=== PATIENT | male | born 1980 | race African-American/Black ===

== ENCOUNTER 2016-10-03 12:38 | Emergency (ER) | payer OTHER, BC ==
[2016-10-03 12:52] VITALS: BP 145/90; PULSE 81; TEMP 98.3; BMI 34.9
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
== END 2016-10-03 15:03 | disposition home or self-care (01) ==
LOC: JERFT 12:38
DX: S46.912A Strain of unspecified muscle, fascia and tendon at shoulder and upper arm level, left arm, initial encounter (principal); V43.52XA Car driver injured in collision with other type car in traffic accident, initial encounter; Y93.89 Activity, other specified; Y92.410 Unspecified street and highway as the place of occurrence of the external cause; F17.210 Nicotine dependence, cigarettes, uncomplicated
CPT/HCPCS: 72125-TC; 73000-TC-LT; 99281-25

== ENCOUNTER 2018-07-25 18:51 | Emergency (ER) | payer BC, OTHER ==
--- NOTE | 2018-07-25 18:53 | PDOC ---
Rapid Medical Evaluation Time Seen by Provider: 07/25/18 18:53 Medical Evaluation: Allergies Allergy/AdvReac Type Severity Reaction Status Date / Time No Known Allergies Allergy Verified 10/03/16 12:46 07/25/18 18:53 I have performed a brief in-person evaluation of this patient. The patient presents with a chief complaint of: Chest pressure, nausea, lethargy. 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 No history of DM. Pertinent physical exam findings: Alert, oriented, no distress. I have ordered the following: EKG, labs. The patient will proceed to the ED for further evaluation. 07/25/18 18:54 Discharge Disposition - Diagnosis Chest pain Qualifiers: Chest pain type: unspecified Qualified Code(s): R07.9 - Chest pain, unspecified - Referrals - Patient Instructions - Post Discharge Activity
[2018-07-25 18:56] VITALS: BMI 41.9
--- NOTE | 2018-07-25 19:25 | PDOC ---
History of Present Illness - General Chief Complaint: Blood Sugar Problem Stated Complaint: EVALUATION Time Seen by Provider: 07/25/18 18:53 - History of Present Illness Initial Comments: 07/25/18 19:24 38 yo M with h/o HTN, who p/w fatigue, nausea. Patient reports 2 days of decreased appetite, nausea without vomiting, and increased fatigue. States that he took his home blood sugar was 379 at 6000 PM and denies h/o DM. Endorses slight chest discomfort/pressure, and palpitations, with no identifiable triggers or alleviators. + chronic cough with absent sputum production. + right sided leg cramping. Patient denies COULTER, vision change, hearing loss, F,C, CP, SOB, urinary complaints , abdominal pain, diarrhea, constipation, hematruia, BPR, lightheadedness, weakness, sensory changes. PMHx: as noted above. Denies h/o ACS/RI, stent placement, CABG, stress testing. ROS: as noted SHx: tobacco use 5+ years. Denies IVDA Allergies: NKDA Past History - Past Medical History Allergies/Adverse Reactions: Allergies Allergy/AdvReac Type Severity Reaction Status Date / Time No Known Allergies Allergy Verified 10/03/16 12:46 Home Medications: Ambulatory Orders Amlodipine Besylate [Norvasc -] 10 mg PO DAILY 07/10/16 Cyclobenzaprine HCl [Flexeril -] 10 mg PO TID #12 tablet 07/10/16 Hydrochlorothiazide [Hctz -] 12.5 mg PO DAILY 07/10/16 Lisinopril 10 mg PO DAILY 07/10/16 COPD: No Diabetes: No HTN: Yes - Surgical History Cardiac Surgery: No - Immunization History Immunization Up to Date: No - Suicide/Smoking/Psychosocial Hx Smoking Status: No Smoking History: Former smoker Have you smoked in the past 12 months: No Number of Cigarettes Smoked Daily: 3 Information on smoking cessation initiated: No 'Breaking Loose' booklet given: 10/03/16 Hx Alcohol Use: No Drug/Substance Use Hx: No Substance Use Type: None Review of Systems - Review of Systems Comments:: 07/25/18 19:24 GENERAL/CONSTITUTIONAL: + Weakness. No fever or chills. HEAD, EYES, EARS, NOSE AND THROAT: No change in vision. No ear pain or discharge. No sore throat. CARDIOVASCULAR: + chest pain. No shortness of breath RESPIRATORY: No cough, wheezing, or hemoptysis. GASTROINTESTINAL: No nausea, vomiting, diarrhea or constipation. GENITOURINARY: No dysuria, frequency, or change in urination. MUSCULOSKELETAL: No joint or muscle swelling or pain. No neck or back pain. SKIN: No rash NEUROLOGIC: + leg cramping. No headache, vertigo, loss of consciousness, or change in strength/sensation. ENDOCRINE: No increased thirst. No abnormal weight change HEMATOLOGIC/LYMPHATIC: No anemia, easy bleeding, or history of blood clots. ALLERGIC/IMMUNOLOGIC: No hives or skin allergy. *Physical Exam - Vital Signs Last Vital Signs Temp Pulse Resp BP Pulse Ox 98.4 F 104 H 18 165/94 100 07/25/18 18:52 07/25/18 18:52 07/25/18 18:52 07/25/18 18:52 07/25/18 18:52 - Physical Exam Comments: 07/25/18 19:25 GENERAL: Awake, alert, and fully oriented, in no acute distress HEAD: No signs of trauma, normocephalic, atraumatic EYES: PERRLA, EOMI, sclera anicteric, conjunctiva clear ENT: + Dry mucous membranes. Auricles normal inspection, hearing grossly normal , nares patent, oropharynx clear without exudates. NECK: Normal ROM, supple, no lymphadenopathy, JVD, or masses LUNGS: No distress, speaks full sentences, clear to auscultation bilaterally HEART: Irregular rhythm, normal rate, S1 and S2, no murmurs, rubs or gallops, peripheral pulses normal and equal bilaterally. ABDOMEN: Soft, nontender, normoactive bowel sounds. No guarding, no rebound. No masses EXTREMITIES : Normal inspection, Normal range of motion, no edema. No clubbing or cyanosis. NEUROLOGICAL: Cranial nerves II through XII grossly intact. Normal speech, normal gait, no focal sensorimotor deficits SKIN: Warm, Dry, normal turgor, no rashes or lesions noted Moderate Sedation - Procedure Monitoring Vital Signs: Procedure Monitoring Vital Signs Temperature 98.4 F 07/25/18 18:52 Pulse Rate 104 H 07/25/18 18:52 Respiratory Rate 18 07/25/18 18:52 Blood Pressure 165/94 07/25/18 18:52 O2 Sat by Pulse Oximetry (%) 100 07/25/18 18:52 ED Treatment Course - LABORATORY CBC & Chemistry Diagram: 07/25/18 19:19 07/25/18 19:19 Medical Decision Making - Medical Decision Making 07/25/18 19:47 38 yo M with h/o HTN, who p/w fatigue, nausea. HR 104, vitals otherwise wnl, AF , A&Ox3. ACS/RI r/o. Will assess for hypo/hyperglycemia, electrolyte abnml, metabolic and toxic derangements, acid-base disturbances, infection. Will provide IVF, anti-emetic and reassess. ED Course: NS, Zofran 07/25/18 20:30 CBC,CMP: Unremarkable Trop: 0.07 Glu: 123, c02 27, pH 7.42 flu: neg 07/25/18 21:36 EKG: NSR with PACs, absent DORON, STD. + LVH. normal interval duration. Patient advised to f/u with PMD Patient stable and ready for d/c with return precautions. *DC/Admit/Observation/Transfer Diagnosis at time of Disposition: Chest pain Qualifiers: Chest pain type: unspecified Qualified Code(s): R07.9 - Chest pain, unspecified - Discharge Dispostion Condition at time of disposition: Stable - Referrals Referrals: Juan Jose Leal MD [Staff Physician] - - Patient Instructions Printed Discharge Instructions: DI for Hyperglycemia -- Adult, DI for Fatigue Additional Instructions: Please return to the emergency department with any new or worsening symptoms or concerns. Please follow up with your primary care physician within 72 hours. - Post Discharge Activity - Attestations Physician Attestion: 07/25/18 19:25 I attest to the information provided in this note.
[2018-07-25 19:38] LABS: BASO % 0.5 % (0-2.0); EOS % 0.9 % (0-4.5); HEMATOCRIT 44.3 % (35.4-49); HEMOGLOBIN 15.3 GM/dL (11.7-16.9); LYMPH % 16.8 % (8-40); MCH 30.3 pg (25.7-33.7); MCHC 34.5 g/dl (32.0-35.9); MEAN CELL VOLUME 87.9 fl (80-96); MEAN PLT VOLUME 8.3 fl (7.5-11.1); MONO % 3.9 % (3.8-10.2); NEUT % 77.9 % (42.8-82.8); PLATELET COUNT 299 K/MM3 (134-434); RBC 5.04 M/mm3 (4.00-5.60); RDW 13.4 % (11.9-15.9); VENOUS PC02 43.2 mmHg (38-52); VENOUS PH 7.42 (7.32-7.42); VENOUS PO2 31.7 mmHg (28-48); WHITE BLOOD COUNT 9.2 K/mm3 (4.0-10.0)
[2018-07-25] MEDS ORDERED: SODIUM CHLORIDE 0.9% 500 ML INFUS.BAG IV ONE (19:41)
[2018-07-25] MEDS ORDERED: ONDANSETRON 4 MG/2 ML VIAL IVPB ONE (19:41)
[2018-07-25] MEDS ORDERED: ONDANSETRON 4 MG/2 ML VIAL ONE (19:54)
[2018-07-25 20:02] LABS: ALBUMIN 4.5 g/dl (3.4-5.0); ALK PHOS 93 U/L (45-117); ANION GAP 10 MMOL/L (8-16); BILIRUBIN,TOTAL 0.9 mg/dL (0.2-1); BLOOD UREA NITROGEN 20 mg/dL (7-18); CALCIUM 8.8 mg/dL (8.5-10.1); CHLORIDE 103 mmol/L (98-107); CO2 27 mmol/L (21-32); GLUCOSE,RANDOM 123 mg/dL (74-106); SODIUM 140 mmol/L (136-145); TOT PROT 7.8 g/dl (6.4-8.2)
[2018-07-25 20:03] LABS: POTASSIUM 3.6 mmol/L (3.5-5.1); SGOT/AST 35 U/L (15-37); SGPT/ALT 35 U/L (13-61)
--- NOTE | 2018-07-25 20:31 | PDOC ---
Attending Attestation - HPI HPI: This patient is a 38 year old male with PMHx of HTN, who presents with 2 days of fatigue and nausea. 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 He also notes decreased appetite, slight chest pressure/discomfort, and palpitations. He notes chronic nonproductive cough and right sided leg cramping. He denies any headache, visual changes, hearing loss, fever, chills, chest pain , shortness of breath, urinary complaints, abdominal pain, diarrhea, constipation, hematuria, blood per rectum, lightheadedness, or sensory changes. Allergies: None Past surgical history: None reported Social history: Cigarette use (1 daily). Occasional alcohol use. No drug use reported <Natalya Feng - Last Filed: 07/25/18 20:56> - Resident Resident Name: Kashmir Menjivar - ED Attending Attestation I have performed the following: I have examined & evaluated the patient, The case was reviewed & discussed with the resident, I agree w/resident's findings & plan, Exceptions are as noted - Physicial Exam PE: 07/25/18 22:28 Agree with resident exam Patient well appearing, NAD, AOx3 - Medical Decision Making 07/25/18 22:28 Well appearing 38M with pmh of HTN here with several days of fatigue, nausea, decreased appetite found to have fsg >300 at home New DM? eval for dka, electrolyte/metabolic derangements f/u labs re-eval after symptomatic tx Pt states asymptomatic after tx Has follow up with PCP 07/30/18 <Ja Coombs - Last Filed: 07/25/18 22:31>
[2018-07-25 21:02] LABS: ACETONE SERUM NEGATIVE (NEGATIVE)
[2018-07-25 21:58] VITALS: BP 137/68; PULSE 89; TEMP 98.5
--- NOTE | 2018-07-26 11:39 | EKG ---
Test Reason : Blood Pressure : / mmHG Vent. Rate : 092 BPM Atrial Rate : 092 BPM P-R Int : 186 ms QRS Dur : 094 ms QT Int : 348 ms P-R-T Axes : 029 010 035 degrees QTc Int : 430 ms SINUS RHYTHM WITH PREMATURE ATRIAL COMPLEXES MINIMAL VOLTAGE CRITERIA FOR LVH, MAY BE NORMAL VARIANT BORDERLINE ECG WHEN COMPARED WITH ECG OF 22-NOV-2011 21:57, PREMATURE ATRIAL COMPLEXES ARE NOW PRESENT MINIMAL CRITERIA FOR SEPTAL INFARCT ARE NO LONGER PRESENT Confirmed by WILLIAM LÓPEZ, ASHLEY ([id number]) on 07/26/2018 11:38:57 AM Referred By: Confirmed By:ASHLEY THOMAS MD
== END 2018-07-25 21:56 | disposition home or self-care (01) ==
LOC: JER 18:51
PROC: 3E033GC Introduction of Other Therapeutic Substance into Peripheral Vein, Percutaneous Approach (ICD-10-PCS; principal; 2018-07-25)
DX: R07.9 Chest pain, unspecified (principal); R73.9 Hyperglycemia, unspecified; I10 Essential (primary) hypertension
CPT/HCPCS: 36415; 71045-TC-FY; 80053; 82009; 82803; 83036; 84484; 85025; 87804; 93005; 93010; 99282-25